=== PATIENT | female | born 1980 | race Caucasian/White ===

== ENCOUNTER 2022-08-31 06:59 | Day surgery (SDC) | payer BC, OTHER ==
[~2022-08-31 06:59] MED LIST: Lactated Ringers 1,000 ML IV SCH; Sodium Chloride 0.9% 10 ML Syringe FLUSH PRN; ceFAZolin 1 GM Vial IVPUSH ONE; ceFAZolin 1 GM in Sodium Chloride 0.9% 50 ML IV ONE
[2022-08-31] MEDS ORDERED: fentaNYL 100 MCG/2 ML SDV IV ONE (07:00)
[2022-08-31] MEDS ORDERED: Dexamethasone 4 MG/ML 5 ML MDV IVPUSH ONE (07:00)
[2022-08-31] MEDS ORDERED: Glycopyrrolate 0.2 MG/ML 5 ML MDV IV ONE (07:00)
[2022-08-31] MEDS ORDERED: diphenhydrAMINE 50 MG/ML SDV IVPUSH ONE (07:00)
[2022-08-31] MEDS ORDERED: Rocuronium 50 MG/5 ML Vial IV ONE (07:00)
[2022-08-31] MEDS ORDERED: Ondansetron 4 MG/2 ML SDV IVPUSH ONE (07:00)
[2022-08-31] MEDS ORDERED: Neostigmine Methylsulfate 10 MG/10 ML MDV IVPUSH ONE (07:00)
[2022-08-31] MEDS ORDERED: Lactated Ringers 1,000 ML IV ONE (07:00)
[2022-08-31] MEDS ORDERED: Propofol 200 MG/20 ML SDV IV ONE (07:00)
[2022-08-31] MEDS ORDERED: Midazolam 1 MG/ML 2 ML SDV IV ONE (07:00)
[2022-08-31] MEDS ORDERED: Ketorolac 30 MG/ML SDV IVPUSH ONE (07:00)
[2022-08-31] MEDS ORDERED: Bupivacaine 0.5%/EPINEPHrine 1:200,000 10 ML SDV INJECT ONE (08:26)
[2022-08-31] MEDS ORDERED: Acetaminophen/HYDROcodone 325-5 MG Tab PO ONE (11:07)
== END 2022-08-31 12:45 | disposition home or self-care (01) ==
LOC: FB.SDS 06:59
PROVIDERS: ATTEND Surgery
DX: K80.10 Calculus of gallbladder with chronic cholecystitis without obstruction (principal); F41.9 Anxiety disorder, unspecified; G43.909 Migraine, unspecified, not intractable, without status migrainosus; Z98.890 Other specified postprocedural states; Z79.899 Other long term (current) drug therapy; Z91.040 Latex allergy status
CPT/HCPCS: 00790-QZ; 88304; A9270-GY; J0690; J1100; J1200; J1885; J2250; J2405; J2704; J2710; J3010; J3490; J7120